=== PATIENT | male | born 1965 | race Caucasian/White ===

== ENCOUNTER 2020-07-26 08:30 | Outpatient (CLI) | payer BC, SELFPAY ==
--- NOTE | 2020-07-26 09:44 | ECG_ITS ---
Measurements Intervals [place] Rate: 57 P: 49 MD: 149 QRS: 20 QRSD: 90 T: 3 QT: 390 QTc: 380 Interpretive Statements SINUS BRADYCARDIA BORDERLINE ST-T WAVE ABNORMALITY- INFERIOR LEADS BASELINE ARTIFACT- I, II, AVR, AVL, AVF BORDERLINE ECG Electronically Signed On 07-26-2020 10:56:27 CDT by Uli Contreras D.O.
[2020-07-26 10:08] LABS: Basophils Absolute Auto 0.1 K/mm3 (0.0-0.1); Basophils Percent Auto 1.3 % (0.2-1.2); Eosinophils Absolute Auto 0.1 K/mm3 (0-0.3); Eosinophils Percent Auto 1.8 % (0-4.4); Hematocrit 45.4 % (42.0-52.0); Immature Granulocyte Absolute 0.02 K/mm3 (0.00-0.031); Immature Granulocyte Percent A 0.4 % (0-0.5); Lymphocytes Absolute Auto 1.35 K/mm3 (0.9-3.2); Lymphocytes Percent Auto 24.4 % (18.3-44.2); Mean Corpuscular Hemoglobin 29.8 pg (26-34); Mean Corpuscular Volume 90.1 fl (80-100); Mean Platelet Volume 10.4 fl (7.4-10.4); Monocytes Absolute Auto 0.6 K/mm3 (0.1-0.6); Monocytes Percent Auto 10.3 % (2.6-8.5); Neutrophils Absolute Auto 3.4 K/mm3 (1.3-6.7); Neutrophils Percent Auto 61.8 % (45.5-73.1); Platelet Count Result 274 k/mm3 (150-375); Red Blood Count 5.04 M/mm3 (4.6-6.20); Red Cell Distribution Width 13.2 % (11.5-14.5); White Blood Count 5.5 K/mm3 (4.5-10.0)
[2020-07-26 10:18] LABS: INR 0.9; Prothrombin Time 12.6 Seconds (11.1-14.7)
[2020-07-26 10:19] LABS: Partial Thromboplastin Time 30.9 SECONDS (22.3-36.8)
[2020-07-26 10:20] LABS: Alanine Aminotransferase 29 U/L (4-50); Albumin Level 4.1 g/dL (3.5-5.1); Alkaline Phosphatase 60 U/L (38-126); Anion Gap 2 mmol/L (8-16); Aspartate Amino Transferase 22 U/L (17-59); Bilirubin,Total 0.4 mg/dL (0.2-1.3); Blood Urea Nitrogen 8 mg/dL (9-20); Calcium 8.7 mg/dL (8.4-10.2); Carbon Dioxide 34 mmol/L (22-30); Chloride 103 mmol/L (98-107); Estimated Glomerular Filt Rate > 60; Glucose 73 mg/dL (75-110); Potassium 4.1 mmol/L (3.4-5.0); Sodium 139 mmol/L (137-145)
== END 2020-07-26 08:31 | disposition home or self-care (01) ==
PROVIDERS: Visit Provider Urology
DX: C61 Malignant neoplasm of prostate (principal); Z01.818 Encounter for other preprocedural examination; R94.31 Abnormal electrocardiogram [ECG] [EKG]
CPT/HCPCS: 36415; 80053; 85025; 85610; 85730; 86850; 86900; 86901; 87086; 87088; 93005

== ENCOUNTER → 2020-07-28 02:28 | Outpatient (CLI) | payer BC, SELFPAY ==
[2020-07-28 19:28] LABS: SARS-CoV-2 RNA PCR Negative
== END ==
PROVIDERS: Visit Provider Urology
DX: Z01.812 Encounter for preprocedural laboratory examination (principal); Z20.822 Contact with and (suspected) exposure to COVID-19
CPT/HCPCS: C9803; U0003; U0005

== ENCOUNTER 2020-07-31 01:40 | Day surgery (SDC) | payer BC, SELFPAY ==
[2020-07-26 08:53] VITALS: BP 142/88; PULSE 70; RESP 16; TEMP 36.9; O2SAT 99; BMI 29.0
[2020-07-31] VITALS (12 sets, daily range): BP systolic 110–147; BP diastolic 65–92; PULSE 58–99; RESP 14–18; TEMP 36.1–36.6; O2SAT 93–100; BMI 28.7
[2020-07-31] MEDS: LACTATED RINGERS 1,000 ML 30 ML IV CONT ×2 (09:26→15:47)
--- NOTE | 2020-07-31 10:07 | WPDHPUPDATE1 ---
History and Physical Update Update Date/Time: 07/31/20 10:07 History and Physical has been reviewed, including an updated exam of the patient. There are NO changes in the patient's condition. Risks, benefits, and alternatives have been discussed and questions answered. Patient agrees to proceed with procedure. Proceed with robotic assist nerve sparing prostatectomy with possible plnd
--- NOTE | 2020-07-31 10:27 | WPDANESEPPF ---
Anes - Initial Pre Proc Eval Procedure: Operation Date: 07/31/20 12:00 Proposed Procedures p Robotic Assisted Nerve Sparing Prostatectomy, Possible Bilateral Pelvic Lymph Node Dissection - Yasmani Yuan MD Date/Time: 07/31/20 10:27 Surgeon: Yasmani Yuan MD Pre Op Diagnosis: Prostate CA, Umbilical Hernia Patient Data Age: 54 Gender: M Height: 5 ft 9 in Weight: 88.2 kg Last Vital Signs Temp 36.6 C 07/31/20 09:45 Pulse 58 L 07/31/20 09:45 Resp 16 07/31/20 09:45 BP 110/92 H 07/31/20 09:45 Pulse Ox 99 07/31/20 09:45 Allergies Allergy/AdvReac Type Severity Reaction Status Date / Time No Known Allergies Allergy Verified 07/31/20 08:55 Home Medications Medication Instructions Recorded Confirmed Type No Home Medications 07/26/20 07/31/20 History Patient hx anesthesia problems: other (chipped teeth during intubation at [facility]) Family hx anesthesia problems: none FOR[facility]LY [facility], [facility] Past Medical History Medical History (Updated 07/31/20 @ 10:27 by Marvin Sanchez MD) Overweight Prostate cancer Surgical History Surgical History (Updated 07/31/20 @ 10:27 by Marvin Sanchze MD) H/O inguinal hernia repair History of appendectomy Social History Social History Smoking status: Never smoker Alcohol intake: current Drinks per week: 2 Substance use: never Living arrangements: with family Additional living arrangements comments: Spiritual care concerns: No Anes - Eval Final PreProcedure Day of Procedure 07/31/20 10:27 Patient weight: overweight Heart: regular rate and rhythm Lungs: clear to auscultation Airway: Mallampati scale class II and other (hx of chipped upper central incisors during appy at [facility]) Neurological: alert and oriented Last oral intake: >/= 8 hours ASA classification: II Emergent: no Anesthetic plan: proceed Anesthesia type and monitoring: general ETT and standard monitoring Informed Consent: The patient's anesthetic plan and its attendant risks and benefits were discussed with the patient/family/POA. Questions were solicited and answers provided to the satisfaction of the patient/family/POA.
[2020-07-31] MEDS: ceFAZolin 2 GM/D5W 50 ML 2 GM/50 ML BAG IVPB (10:51)
[2020-07-31] MEDS: BUPIVACAINE HCL 0.5% PF 30 ML VIAL INFILTRATE (11:37)
--- NOTE | 2020-07-31 15:21 | P.OP_ITS ---
Procedure Note - Detailed Date of procedure: 07/31/20 Pre-op diagnosis: Prostate CA, Umbilical Hernia Post-op diagnosis: same (Significant adhesion of colon to right lower quadrant) Procedure performed: Lysis of adhesions, robotic assisted nerve-sparing prostatectomy with left pelvic lymph node dissection Description of procedure: Patient is taken the operative suite and correctly identified. Once anesthesia was obtained is placed in low lying dorsal lithotomy position and prepped and draped usual sterile fashion. This 18 Barb[place] Stauffer is placed and inflated with 20 cc of saline. Supraumbilical incision was then made and carried down to the rectus fascia. Veress needle was inserted the abdomen was insufflated to 15 mmHg pressure. Camera port was then placed under direct vision. Working ports were then placed the appropriate locations. Patient was then placed in steep Trendelenburg position. Robot was docked. It was noted that he had a significant amount of adhesions in the right lower quadrant his prior appendectomy. These were then taken down with sharp and blunt dissection. There was also some adhesions of the left colon. We did a posterior approach. Seminal vesicles were dissected out in their entirety. The vessels were transected. Space between the prostate and the rectum was developed. Dorsal venous complex was then isolated with 0 Vicryl suture. This was secured to the pubic bone. Bladder was then taken down in standard fashion. The space of Retzius was developed bilaterally. Puboprostatic were transected. Anterior bladder neck was then opened. A bladder neck sparing procedure was performed. It was noted that he did have a small median lobe. The ureteral orifices were fairly close to the bladder neck area. They were spared however. Pedicles were then clipped. Bilateral nerve-sparing was performed standard fashion. Dorsal venous complex was then transected. The urethra was then transected. Specimen was placed in Endo-Catch bag. Left pelvic lymph node dissection was then performed the standard fashion with the obturator nerve external iliac vein Mandy ligament and bifurcation of the vessels as the boundaries. Clips were placed proximally and distally. This packet was also placed in the Endo-Catch bag. We then reapproximated the posterior layer by placing a Yg stitch. This was accomplished using 0 Vicryl suture. Anastomosis was then performed using V lock suture in a running fashion. There was good approximation of the mucosa. Sixteen Barbadian Stauffer was then placed inflated with 10 cc sterile water. The bladder was filled with 180 cc of saline. There was no evidence of extravasation at this time. All lap count needle count sponge counts were correct. A Syed drain was then placed through the 3rd arm port site. This was secured. It was placed in the deep pelvis. Robot was undocked. Specimen was then brought out through the midline incision. Rectus fascia was closed using 0 Vicryl in running fashion. Subcuticular stitches were then placed. Patient tolerated procedure well without any complications and was taken recovery room stable condition. Anesthesia: GETA Surgeon: Yasmani Yuan MD Estimated blood loss (mL): 100 Drains: Yes Packing: No Pathology: yes Complications: No immediate complications Condition: stable Disposition: PACU
[2020-07-31] MEDS: fentaNYL CITRATE INJ (*CRX) 100 MCG/2 ML VIAL 25 MCG IV PUSH (17:12)
--- NOTE | 2020-07-31 17:30 | ADMGEN ---
This patient, Ryan Lucero, was admitted to 2 Medical Room 241-. Patient/family oriented to hospital policies and general routines including ID bracelet, bed and alarms, visiting hours, pain management, procedures, bathroom and other care routines, personal items, smoking policy, room service/diet, and visiting hours. Information on how to activate the Rapid Response Team has been discussed. Patient/Family are encouraged to report perceived risks to care and to ask questions if they do not understand what they are told or what they should do.
[2020-07-31] MEDS: LACTATED RINGERS 1,000 ML 125 ML IV CONT (18:00)
[2020-07-31] MEDS: HYOSCYAMINE SULFATE 0.125 MG TABLET SUBLINGUAL (18:01)
[2020-07-31] MEDS: KETOROLAC 30 MG/ML VIAL (*BKC) IV PUSH (18:01)
[2020-07-31] MEDS: DOCUSATE SODIUM 100 MG CAPSULE PO (18:45)
[2020-07-31] MEDS: ONDANSETRON INJ 4 MG/2 ML VIAL IV PUSH (18:46)
[2020-08-01] MEDS: HYDROcodone/acetaminophen (*CRX) 5-325 MG TABLET 1 TAB PO ×2 (01:25→14:02)
[2020-08-01] MEDS: ONDANSETRON INJ 4 MG/2 ML VIAL IV PUSH (01:25)
[2020-08-01] MEDS: LACTATED RINGERS 1,000 ML 125 ML IV CONT ×2 (02:09→11:15)
[2020-08-01 03:04] VITALS: BP 117/75; PULSE 82; RESP 16; TEMP 36.2; O2SAT 97
[2020-08-01 05:23] LABS: Hematocrit 35.2 % (42.0-52.0); Hemoglobin 11.8 g/dL (14.0-18.0)
[2020-08-01 05:46] LABS: Anion Gap 4 mmol/L (8-16); Blood Urea Nitrogen 10 mg/dL (9-20); Calcium 7.8 mg/dL (8.4-10.2); Carbon Dioxide 27 mmol/L (22-30); Chloride 102 mmol/L (98-107); Estimated CRCL calculation 80 ml/min; Estimated Glomerular Filt Rate > 60; Glucose 116 mg/dL (75-110); Potassium 3.5 mmol/L (3.4-5.0); Sodium 133 mmol/L (137-145)
[2020-08-01 05:56] VITALS: BP 115/71; PULSE 88; RESP 16; TEMP 36.1; O2SAT 96
[2020-08-01] MEDS: DOCUSATE SODIUM 100 MG CAPSULE PO (08:13)
[2020-08-01 10:30] VITALS: BP 121/57; PULSE 79; RESP 18; TEMP 36.2; O2SAT 98
[2020-08-01 14:00] VITALS: BP 110/65; PULSE 83; RESP 18; TEMP 37.3; O2SAT 99
--- NOTE | 2020-08-01 14:03 | WPDUROPN2 ---
Progress Note: A&P Assessment and Plan (1) Prostate cancer: Code(s): C61 - Malignant neoplasm of prostate Status: Acute Assessment and Plan: Okay to discharge home with lauren and BRYSON drain. Will remove both in office at a further date which is noted in his discharge note. Subjective Subjective Date/Time Seen: 08/01/20 14:03 POD #1 Lysis of adhesions, robotic assisted nerve-sparing prostatectomy with left pelvic lymph node dissection Patient doing well, he is walking around in his room, lauren is draining to gravity and clear/yellow. His BRYSON drain is draining well, but has a moderate amount of output. He is tolerating his diet without nausea or vomiting and passing flatus. He is sore with activity over his incisions but tolerating the pain with medication. Review of Systems Cardiovascular: Cardiovascular: Denies chest pain Respiratory: Respiratory: Reports no additional respiratory complaints Gastrointestinal: Gastrointestinal: Reports abdominal pain, Denies nausea and Denies vomiting Genitourinary: Genitourinary: Denies hematuria and Denies flank pain Exam Resp: Effort & Inspection: normal respiratory effort Cardio: Rate: regular rate GI: GI Palp: Yes Soft to palpation and Yes Tenderness to palpation present (GI) (at inicions only, no redness, edema or drainage present) : General: Yes no CVA tenderness Urinary Catheter: Urinary Catheter: patent and draining and urine clear Extrem: General: no edema Objective Data Vital Signs Vital Signs: Vital Signs - 24 hr 07/31/20 15:47 07/31/20 16:00 07/31/20 16:15 Temperature 97.0 F L Pulse Rate 81 75 77 Respiratory Rate 14 16 17 Blood Pressure 147/80 H 145/90 H 138/77 Pulse Oximetry 100 100 100 07/31/20 16:30 07/31/20 16:45 07/31/20 17:00 Temperature Pulse Rate 78 75 73 Respiratory Rate 15 14 14 Blood Pressure 135/81 133/80 136/85 Pulse Oximetry 94 96 95 07/31/20 17:15 07/31/20 17:35 07/31/20 18:04 Temperature 97.1 F L 97.7 F Pulse Rate 85 80 97 Respiratory Rate 16 16 18 Blood Pressure 121/78 113/65 116/72 Pulse Oximetry 95 93 97 07/31/20 19:04 07/31/20 23:29 08/01/20 03:04 Temperature 96.9 F L 97.0 F L 97.1 F L Pulse Rate 99 88 82 Respiratory Rate 16 16 16 Blood Pressure 112/67 115/71 117/75 Pulse Oximetry 95 96 97 08/01/20 05:56 08/01/20 10:30 Temperature 97.0 F L 97.2 F L Pulse Rate 88 79 Respiratory Rate 16 18 Blood Pressure 115/71 121/57 L Pulse Oximetry 96 98 Intake/Output Intake/Output: Intake & Output 07/29/20 07/30/20 07/31/20 08/01/20 23:59 23:59 23:59 23:59 Intake Total 300 2480 Output Total 190 1370 Balance 110 1110 Meds/Results Medications: Active Medications Generic Name Dose Route Start Last Admin Trade Name Freq PRN Reason Stop Dose Admin Hydrocodone Bitart/Acetaminophen 1 tab 07/31/20 17:19 08/01/20 14:02 Hydrocodone/Acetaminophen (*Crx) 5-325 Mg Tablet PO 1 tab Q6H PRN Administration Pain Rated 1-3 Hydrocodone Bitart/Acetaminophen 2 tab 08/01/20 17:30 Hydrocodone/Acetaminophen (*Crx) 5-325 Mg Tablet PO Q6H PRN Pain Rated 4-6 Docusate Sodium 100 mg 07/31/20 17:19 08/01/20 08:13 Docusate Sodium 100 Mg Capsule PO 100 mg BID LIV Administration Hyoscyamine 0.125 mg 07/31/20 17:19 07/31/20 18:01 Hyoscyamine Sulfate 0.125 Mg Tablet SUBLINGUAL 0.125 mg Q4H PRN Administration Bladder Spasm Lactated Ringer's 1,000 mls @ 125 mls/hr 07/31/20 17:19 08/01/20 11:15 Lr - Lactated Ringers Iv IV CONT 125 mls/hr .Q8H LIV Administration Ketorolac Tromethamine 30 mg 07/31/20 17:19 07/31/20 18:01 Ketorolac 30 Mg/Ml Vial (*Bkc) IV PUSH 08/01/20 17:20 30 mg Q6H PRN Administration Pain Rated 4-6 Levofloxacin 500 mg 08/01/20 09:00 08/01/20 08:13 Levofloxacin Tab 500 Mg Tablet PO 500 mg DAILY LIV Administration Morphine Sulfate 1 mg 07/31/20 17:19 Morphine Sulfate (*Crx) 2 Mg/Ml Inj IV
--- NOTE | 2020-08-01 14:25 | WPDANESPN ---
Anes - Prog Note Post-Op Date/Time: 08/01/20 14:25 Cardiovascular status: normal Respiratory status: normal Airway patency: baseline Mental status: baseline Post-Op hydration status: normal Vital Signs: Last Vital Signs Temp 36.2 C L 08/01/20 10:30 Pulse 79 08/01/20 10:30 Resp 18 08/01/20 10:30 BP 121/57 L 08/01/20 10:30 Pulse Ox 98 08/01/20 10:30 Pain Score (VAS): 0 I/O: Intake & Output 07/31/20 08/01/20 08/01/20 23:59 07:59 15:59 Intake Total 250 1000 1480 Output Total 190 640 760 Balance 60 360 720 Laboratory Tests 08/01/20 04:53 08/01/20 04:53 08/01/20 08/01/20 04:53 04:53 Hgb 11.8 L D Hct 35.2 L Sodium 133 L Potassium 3.5 Chloride 102 Carbon Dioxide 27 Anion Gap 4 L BUN 10 Creatinine 0.90 Estim Creat Clear Calc 80 Estimated GFR > 60 Glucose 116 H Calcium 7.8 L Post-procedural complaints: none Patient Feedback: Patient satisfied with anesthetic care.
[2020-08-01 16:03] VITALS: TEMP 36.9
--- NOTE | 2020-08-01 17:13 | PC.NURSE ---
Patient and educated on lauren catheter care. Also educated them on how to empty the catheter and how to switch from large gravity drainage bag to leg bag and back again. Supplied patient with a clean gravity drainage bag to take home and placed leg bag on patient for transport home. Provided urinal for emptying catheter at home. Also sent stabilization device for catheter home with patient/. Instructed patient and on how to empty BRYSON drain and how to activate suction. Instructed them and demonstrated drain dressing change and supplied drain sponges and medipore tape for home use. Provided drinking cups and medication cups with measurement markings to keep track of drain output. Instructed patient and to record drain output and bring record to office visit on 08/03. Patient and both verbalized understanding of all instructions given. Sent home with written instructions on drain and lauren care as well.
== END 2020-08-01 17:20 | disposition home or self-care (01) ==
LOC: ANHSURGERY 08:47 → ANH2MED 17:22
PROVIDERS: Visit Provider Urology
PROC: 0VT04ZZ Resection of Prostate, Percutaneous Endoscopic Approach (ICD-10-PCS; CPT 55867; principal; 2020-07-31 12:00)
DX: C61 Malignant neoplasm of prostate (principal); K42.9 Umbilical hernia without obstruction or gangrene; K66.0 Peritoneal adhesions (postprocedural) (postinfection)
CPT/HCPCS: 55866; 38589; S2900; 36415; 80048; 80053; 85014; 85018; 85025; 85610; 85730; 86850; 86900; 86901; 87086; 87088; 88307; 93005; A9270; C9803; J0330; J0690; J1100; J1170; J1885; J2250; J2405; J2704; J2710; J3010; J7120; U0003; U0005

== ENCOUNTER 2020-08-09 09:04 | Outpatient (CLI) | payer BC, SELFPAY ==
--- NOTE | ~2020-08-09 | XR_ITS ---
EXAMINATION: CYSTOGRAM DATE: 08/09/2020 09:33 INDICATION: Prostate cancer post prostatectomy TECHNIQUE: Initial bobbin inspector radiograph of the pelvis was performed. There was retrograde administration of Omnipaque 350 mixed with saline contrast into patient's existing lauren catheter. Fluoroscopic gisela ges of the pelvis were obtained. A post-void image was also performed. A total of 11 images were obta ined. Fluoroscopy exposure time was 0.4 minutes. FINDINGS: Lauren catheter in the bladder. Contrast fills the bladder which demonstrates a smooth mucosal contour . No extraluminal contrast extravasation or vesicoureteral reflux. IMPRESSION: 1. Normal post prostatectomy cystogram with no evident extraluminal extravasation. Reviewed, dictated and finalized at location A. IMPRESSION: 1. Normal post prostatectomy cystogram with no evident extraluminal extravasat ion.
== END 2020-08-09 09:05 | disposition home or self-care (01) ==
PROVIDERS: Visit Provider Urology
DX: C61 Malignant neoplasm of prostate (principal)
CPT/HCPCS: 51600; 74430; Q9967

== ENCOUNTER 2021-03-08 09:17 | Outpatient (CLI) | payer BC, SELFPAY ==
[2021-03-08 10:19] LABS: Prostate Specific Antigen < 0.1 ng/mL (< OR = 4.0)
== END 2021-03-08 09:18 | disposition home or self-care (01) ==
PROVIDERS: Visit Provider Urology
DX: R97.20 Elevated prostate specific antigen [PSA] (principal)
CPT/HCPCS: 36415; 84153

== ENCOUNTER 2021-05-30 07:42 | Outpatient (CLI) | payer BC, SELFPAY ==
[2021-05-30 09:23] LABS: Prostate Specific Antigen 0.1 ng/mL (< OR = 4.0)
== END 2021-05-30 07:43 | disposition home or self-care (01) ==
PROVIDERS: Visit Provider Urology
DX: R97.20 Elevated prostate specific antigen [PSA] (principal)
CPT/HCPCS: 36415; 84153

== ENCOUNTER 2022-09-27 02:01 | Day surgery (SDC) | payer BC, SELFPAY ==
[2022-09-13 15:03] VITALS: BMI 30.2
--- NOTE | 2022-09-26 21:15 | PM.HPGS ---
History of Present Illness History of Present Illness Consent: Risks, benefits, and alternatives have been discussed and questions answered. Patient agrees to proceed with procedure. Chief complaint: neoplasm screening Narrative: Ryan Lucero is a 56 year old male referred for colon cancer screening. He has had prostatectomy for prostate cancer. Review of Systems Review of Systems: All systems reviewed & are unremarkable except as noted in HPI and below PMFSH Past Medical History Medical History Overweight Prostate cancer Surgical History Surgical History H/O inguinal hernia repair History of appendectomy Social History Social History Smoking status: Never smoker Alcohol intake: current Drinks per week: 2 Alcohol use details: BEERS Substance use: never Substance use type: does not use Living arrangements: with family Additional living arrangements comments: Spiritual care concerns: No Meds Home Medications and Allergies Home Medications Medication Instructions Recorded Confirmed Type atorvastatin 20 mg tablet 20 mg PO DAILY 09/13/22 09/13/22 History Allergies Allergy/AdvReac Type Severity Reaction Status Date / Time No Known Allergies Allergy Verified 09/27/22 12:11 Exam Const: General: alert Orientation/consciousness: patient oriented x3 Resp: Auscultation: clear to auscultation bilaterally Cardio: Rate: regular rate Rhythm: regular rhythm GI: GI Palp: Yes Soft to palpation and No Tenderness to palpation present (GI) Neuro: General: patient oriented x3 Assessment and Plan Assessment and plan (1) Colon cancer screening: Code(s): Z12.11 - Encounter for screening for malignant neoplasm of colon Status: Acute Assessment and Plan: Colonoscopy with possible biopsy or polypectomy or cautery or injection of substances.
[2022-09-27 12:12] VITALS: BP 124/80; PULSE 55; RESP 20; TEMP 36.1; O2SAT 98
[2022-09-27] MEDS: LACTATED RINGERS 1,000 ML 150 ML IV CONT (12:24)
--- NOTE | 2022-09-27 12:26 | WPDANESEPPF ---
Anes - Initial Pre Proc Eval Procedure: Operation Date: 09/27/22 13:30 Proposed Procedures p Screening Colonoscopy - Charan Hoffman MD Date/Time: 09/27/22 12:26 Surgeon: Charan Hoffman MD Pre Op Diagnosis: neoplasm screening Patient Data Age: 56 Gender: M Height: 1.75 m Weight: 90.1 kg Last Vital Signs Temp 97 F L 09/27/22 12:12 Pulse 55 L 09/27/22 12:12 Resp 20 09/27/22 12:12 BP 124/80 09/27/22 12:12 Pulse Ox 98 09/27/22 12:12 O2 Del Method Room Air 09/27/22 12:12 Allergies Allergy/AdvReac Type Severity Reaction Status Date / Time No Known Allergies Allergy Verified 09/27/22 12:11 Home Medications Medication Instructions Recorded Confirmed Type atorvastatin 20 mg tablet 20 mg PO DAILY 09/13/22 09/13/22 History Patient hx anesthesia problems: none Family hx anesthesia problems: none Results Review: All pre-operative results and documents have been reviewed as part of the pre-operative evaluation. FORMERLY [facility] Past Medical History Medical History Overweight Prostate cancer Surgical History Surgical History H/O inguinal hernia repair History of appendectomy Social History Social History Smoking status: Never smoker Alcohol intake: current Drinks per week: 2 Alcohol use details: BEERS Substance use: never Substance use type: does not use Living arrangements: with family Additional living arrangements comments: Spiritual care concerns: No Anes - Eval Final PreProcedure Day of Procedure 09/27/22 12:26 Patient weight: normal Heart: regular rate and rhythm Lungs: clear to auscultation Airway: Mallampati scale class II Neurological: alert and oriented Last oral intake: >/= 8 hours ASA classification: III Emergent: no Anesthetic plan: proceed Anesthesia type and monitoring: general GIVS and standard monitoring Results Review: All pre-operative results and documents have been reviewed as part of the pre-operative evaluation. Informed Consent: The patient's anesthetic plan and its attendant risks and benefits were discussed with the patient/family/POA. Questions were solicited and answers provided to the satisfaction of the patient/family/POA.
[2022-09-27] MEDS: SIMETHICONE ORAL SUSPENSION 20 MG/0.3 ML 30 ML BOTTLE 0.6 ML IRRIGATION (13:08)
[2022-09-27 13:15] VITALS: BP 109/67; PULSE 60; RESP 17; O2SAT 98
[2022-09-27 13:25] VITALS: BP 114/82; PULSE 61; RESP 22; O2SAT 99
[2022-09-27 13:35] VITALS: BP 114/77; PULSE 63; RESP 15; O2SAT 98
== END 2022-09-27 13:46 | disposition home or self-care (01) ==
PROVIDERS: Visit Provider Internal Medicine Gastroenterology
PROC: 0DJD8ZZ Inspection of Lower Intestinal Tract, Via Natural or Artificial Opening Endoscopic (ICD-10-PCS; CPT 45378; principal; 2022-09-27 13:30)
DX: Z12.11 Encounter for screening for malignant neoplasm of colon (principal); K62.1 Rectal polyp; K57.30 Diverticulosis of large intestine without perforation or abscess without bleeding; C61 Malignant neoplasm of prostate
CPT/HCPCS: 45385; 88305; J2704; J7120